=== PATIENT | female | born 1985 | race Caucasian/White ===

== ENCOUNTER 2020-04-26 10:11 | Emergency (ER) | payer OTHER ==
[~2020-04-26] VITALS: Ht 162.6 cm; Wt 57.1 kg
--- NOTE | 2020-04-26 10:38 | NUR ---
SAS PROGRAMMER ANALYST: PT AMBULATORY TO ROOM FROM LOBBY WITH STEADY GAIT WITH BERONICA HEATON
--- NOTE | 2020-04-26 11:40 | NUR ---
PT RESTING IN ROOM. RESP EVEN AND UNLABORED. NADN.
[2020-04-26 13:37] VITALS: BP 140/80
--- NOTE | 2020-04-26 13:38 | NUR ---
Patient given discharge instructions and they have confirmed that they understand the instructions. Patient ambulatory with steady gait.
== END 2020-04-26 13:39 | disposition home or self-care (01) ==
LOC: ED 12:11
DX: S02.832A Fracture of medial orbital wall, left side, initial encounter for closed fracture (principal); H11.32 Conjunctival hemorrhage, left eye; Y08.89XA Assault by other specified means, initial encounter; Y93.89 Activity, other specified; Y92.89 Other specified places as the place of occurrence of the external cause; Y99.8 Other external cause status
CPT/HCPCS: 70486; 99284